=== PATIENT | male | born 1960 | race Caucasian/White ===

== ENCOUNTER 2016-08-03 12:49 | Emergency (ER) | payer SELFPAY ==
[~2016-08-03] VITALS: Ht 185.4 cm; Wt 90.0 kg
[2016-08-03 12:51] VITALS: BP 147/73; PULSE 78; RESP 14; TEMP 97.8; O2SAT 99
--- NOTE | 2016-08-03 13:06 | PD ---
HPI . left index finger laceration since 11pm last night Chief Complaint: Laceration/Skin Injury Time Seen by Provider: 13:06 Travel History International Travel<30 days: No Contact w/Intl Traveler<30days: No Traveled to known affect area: No History of Present Illness HPI 56-year-old male with history of chronic neck problems here with complaints of the left index finger laceration he sustained last night about 11 PM while working with a knife. Patient tells me that he was using his pocket knife when he accidentally cut the left index finger. He immediately perform generalized wound care and applied a clean dressing with the supplies he had at home. He denies any pain or problems other than excessive bleeding. He decided to come to the emergency department because the wound would not stop bleeding. He is up -to-date on his tetanus shot and received it about a month ago. [facility] Past Medical History Medical History: Denies Significant Hx ?: Not Social History Alcohol Use: No Tobacco Use: Yes Substance Use: No Allergies-Medications (Allergen,Severity, Reaction): Coded Allergies: Trudy (Verified Allergy, Unknown, 08/03/16) Reported Meds & Prescriptions Reported Meds & Active Scripts Active No Active Prescriptions or Reported Medications Review of Systems General / Constitutional: No: Fever Eyes: No: Visual changes HENT: No: Headaches Cardiovascular: No: Chest Pain or Discomfort Respiratory: No: Shortness of Breath Gastrointestinal: No: Abdominal Pain Genitourinary: No: Dysuria Musculoskeletal: No: Pain Skin: Positive Other (left index finger cut) Neurologic: No: Weakness Psychiatric: No: Depression Endocrine: No: Polydipsia Hematologic/Lymphatic: No: Easy Bruising Physical Exam Narrative GENERAL: AAO x 3, no acute distress, Well-nourished, well-developed patient. SKIN: Warm and dry. No visible rashes or bruising. small 0.5 cm cut over the left index finger, distal to PIP. not deep enough to visualize any tissue/nerve or bone injury. HEAD: Normocephalic and atraumatic. EYES: No scleral icterus. No injection or drainage. ENT: No nasal drainage noted. Airway patent. NECK: Supple, trachea midline. No JVD. CARDIOVASCULAR: Regular rate and rhythm without murmurs, gallops, or rubs. RESPIRATORY: Breath sounds equal bilaterally. No accessory muscle use. No rhonchi or rales. GASTROINTESTINAL: Abdomen soft, non-tender, nondistended. EXTREMITIES: No cyanosis or edema. Full ROM of all digits b/l hand. Cap refill normal b/l BACK: Nontender without obvious deformity. No CVA tenderness. PSYCH: AAO x 3, normal affect. Data Data Last Documented VS Vital Signs Date Time Temp Pulse Resp B/P Pulse Ox O2 Delivery O2 Flow Rate FiO2 08/03/16 12:51 97.8 78 14 147/73 99 MDM Medical Decision Making Medical Screen Exam Complete: Yes Emergency Medical Condition: Yes Medical Record Reviewed: Yes Differential Diagnosis finger laceration, abrasion, less likely fracture Narrative Course 56-year-old male with history of chronic neck problems here with complaints of the left index finger laceration he sustained last night about 11 PM while working with a knife. Patient tells me that he was using his pocket knife when he accidentally cut the left index finger. He immediately perform generalized wound care and applied a clean dressing with the supplies he had at home. He denies any pain or problems other than excessive bleeding. He decided to come to the emergency department because the wound would not stop bleeding. He is up -to-date on his tetanus shot and received it about a month ago. Patient seen and examined. He has a very small superficial 0.5 cm laceration to the left index finger distal to the PIP. At the time of examination there is no significant bleeding. I think the bleeding may have been related to the improper dressing materials and tightness of him wrapping the wound. Sutures are not required. benzoin and steri strips. Discussed with patient that steri strips will fall off by themselves. Advised to change gauze daily. Discussed signs of infection and what to do if they appear. Patient verbalized understanding of instructions, questions were answered, and thanked me for their care. I advised them if their condition worsens, please return to the nearest emergency room for further care. Procedures Procedure Narrative laceration repair: left index finger, distal to PIP joint cleaned with saline and betadine no evidence of bony, vessel or nerve injury benzoin and steri strips applied clean dressing placed patient tolerated without incident. Diagnosis Primary Impression: Finger laceration Qualified Code: S61.219A - Finger laceration, initial encounter Patient Instructions: Finger Laceration (ED), General Instructions, Laceration (ED) Additional Instructions: Keep area clean and dry. Use gauze as we discussed and change 1-2 times a day. Watch for signs of infection: fever, redness, swelling, warmth, pus or drainage , red streaks around the cut, andIf you received a tetanus shot, you may experience tenderness at the injection site. This is normal. The steri strips will fall off by themselves. Scripts No Active Prescriptions or Reported Meds Disposition: 01 DISCHARGE HOME Condition: Stable Camelia Mancini August 03, 2016 13:06
== END 2016-08-03 13:47 | disposition home or self-care (01) ==
LOC: NEPK 12:49
DX: S61.211A Laceration without foreign body of left index finger without damage to nail, initial encounter (principal); W26.0XXA Contact with knife, initial encounter
CPT/HCPCS: 12001

== ENCOUNTER 2017-09-19 13:11 | Emergency (ER) | payer SELFPAY ==
[2017-09-19 13:36] VITALS: BP 114/65; PULSE 70; RESP 16; TEMP 98; O2SAT 98
--- NOTE | 2017-09-19 15:23 | PD ---
HPI Chief Complaint: Bite or Sting Time Seen by Provider: 15:22 Travel History International Travel<30 days: No Contact w/Intl Traveler<30days: No Traveled to known affect area: No History of Present Illness HPI 57-year-old male presents emergency department after being contacted by an unknown [employer] yesterday evening. Patient states he suited off but since that time he has developed a rash in this area with increased burning and pain radiating into the left upper arm and shoulder. Patient denies difficulty breathing, wheezing, swelling of the tongue or difficulty swallowing. Patient has been working all day today. He describes the pain as a burning, and is worsening through the day today. He has not taken anything for it so far. Pain is currently 7 out of 10. He is allergic to Pentazocine. PENDING SALE TO [facility] Social History Alcohol Use: No Tobacco Use: Yes Substance Use: No Allergies-Medications (Allergen,Severity, Reaction): Coded Allergies: pentazocine (Unverified Allergy, Unknown, 11/10/16) Reported Meds & Prescriptions Reported Meds & Active Scripts Active Prednisone 20 Mg Tab 20 Mg PO DAILY 5 Days Review of Systems Except as stated in HPI: all other systems reviewed are Neg General / Constitutional: No: Fever Eyes: No: Visual changes HENT: No: Headaches Cardiovascular: No: Chest Pain or Discomfort Respiratory: No: Shortness of Breath Gastrointestinal: No: Abdominal Pain Genitourinary: No: Dysuria Musculoskeletal: No: Pain Skin: Positive Rash, Positive Other (Burning) Neurologic: No: Weakness Psychiatric: No: Depression Endocrine: No: Polydipsia Hematologic/Lymphatic: No: Easy Bruising Physical Exam Narrative GENERAL: Patient appears in no obvious distress SKIN: Warm and dry. Normal color. Normal turgor. Patient has an erythematous lacy rash which is not raised to the right medial proximal forearm. There is no sign of cellulitis or abscess. HEAD: Atraumatic. Normocephalic. EYES: Pupils equal and round. No scleral icterus. No injection or drainage. ENT: No nasal bleeding or discharge. Mucous membranes pink and moist. Pharynx is clear. Airways patent. Tongue looks normal. NECK: Trachea midline. Supple nontender without significant lymphadenopathy CARDIOVASCULAR: Regular rate and rhythm. RESPIRATORY: No accessory muscle use. Clear to auscultation. Breath sounds equal bilaterally. GASTROINTESTINAL: Abdomen soft, non-tender, nondistended. Hepatic and splenic margins not palpable. MUSCULOSKELETAL: Extremities without clubbing, cyanosis, or edema. No obvious deformities. Patient has some soft tissue muscle tenderness to the left upper trapezius. Otherwise no significant findings are noted. NEUROLOGICAL: Awake and alert. No obvious cranial nerve deficits. Motor grossly within normal limits. Five out of 5 muscle strength in the arms and legs. Normal speech. PSYCHIATRIC: Appropriate mood and affect; insight and judgment normal. Data Data Last Documented VS Vital Signs Date Time Temp Pulse Resp B/P (MAP) Pulse Ox O2 Delivery O2 Flow Rate FiO2 09/19/17 13:36 98.0 70 16 114/65 (81) 98 Orders Orders Diphenhydramine 2%/Zinc Cream (Benadryl (09/19/17 15:45) Ketorolac Inj (Toradol Inj) (09/19/17 15:45) Prednisone (Deltasone) (09/19/17 15:45) Ed Discharge Order (09/19/17 16:12) [facility] Medical Decision Making Medical Screen Exam Complete: Yes Emergency Medical Condition: Yes Differential Diagnosis Topical dermatitis. Reaction to [employer]. Rash Narrative Course Patient is medically stable. Patient will be treated symptomatically with topical Benadryl ointment, prednisone 20 mg daily for 5 days, and Tylenol as needed. Diagnosis Primary Impression: Insect sting allergy, current reaction Qualified Codes: T63.481A - Toxic effect of venom of other arthropod, accidental (unintentional), initial encounter Patient Instructions: Acute Rash (ED), General Instructions Additional Instructions: Patient is medically stable. Patient will be treated symptomatically with topical Benadryl ointment, prednisone 20 mg daily for 5 days, and Tylenol as needed. Med/Other Pt SpecificInfo: Prescription(s) given Scripts Prednisone (Prednisone) 20 Mg Tab 20 MG PO DAILY for 5 Days, #5 TAB 0 Refills Prov: Grace Sanchez MD 09/19/17 Disposition: 01 DISCHARGE HOME Condition: Stable Wilmer Merida Sep 19, 2017 15:23
[2017-09-19] MEDS ORDERED: predniSONE 20 MG TAB PO ONE (15:45)
[2017-09-19] MEDS ORDERED: diphenhydrAMINE HCL 2%/ZINC ACETATE 0.1% CREAM 30 APPLIC/30 GM TUBE TOPICAL ONE (15:45)
[2017-09-19] MEDS ORDERED: KETOROLAC TROMETHAMINE 60 MG/2 ML (IM) VIAL IM ONE (15:45)
[2017-09-19] MEDS ORDERED: PRED20 PO (16:11)
== END 2017-09-19 16:26 | disposition home or self-care (01) ==
LOC: NEPD 13:11
DX: T63.481A Toxic effect of venom of other arthropod, accidental (unintentional), initial encounter (principal); R21 Rash and other nonspecific skin eruption; R20.8 Other disturbances of skin sensation; M79.602 Pain in left arm; Z72.0 Tobacco use
CPT/HCPCS: 96372; 99283; J1885; J7512